=== PATIENT | male | born 1990 | race Caucasian/White ===

== ENCOUNTER 2018-11-09 08:03 | Emergency (ER) | payer BC, OTHER ==
[~2018-11-09] VITALS: Ht 167.6 cm; Wt 61.9 kg
[2018-11-09 08:08] VITALS: Ht 167.6 cm; Wt 61.9 kg
[2018-11-09 11:00] VITALS: RESP 14
[2018-11-09] MEDS ORDERED: PRED20TA PO (13:04)
[2018-11-09] MEDS ORDERED: LEVO750T25 PO (13:04)
--- NOTE | 2018-11-09 13:09 | ERD ---
ER Documentation Chief Complaint Chief Complaint Complains of rash, swelling cellulitis lower extremities since yesterday HPI This is a 28-year-old male who had a small area on his left de guzman of erythema that when he woke up today had spread nearly circumferentially around his left lower de guzman and some on the right de guzman. He said it feels better today than yesterday but the redness is worse. He has no fever no trauma no chest pain or shortness of breath. ROS All systems reviewed and are negative except as per history of present illness. Medications Home Meds Active Scripts Levofloxacin* (Levaquin*) 750 Mg Tablet, 750 MG PO DAILY for 10 Days, TAB Prov:LEKKOS,APOSTOLOS A. DO 11/09/18 Prednisone* (Prednisone*) 20 Mg Tab, 60 MG PO DAILY for 5 Days, TAB Prov:LEKKOS,APOSTOLOS A. DO 11/09/18 Allergies Allergies: Coded Allergies: Penicillins (Verified Allergy, Intermediate, 11/09/18) PMhx/Soc Medical and Surgical Hx: pt denies Medical Hx, pt denies Surgical Hx History of Surgery: No Anesthesia Reaction: No Hx Neurological Disorder: No Hx Respiratory Disorders: No Hx Cardiac Disorders: No Hx Psychiatric Problems: No Hx Miscellaneous Medical Probl: No Hx Alcohol Use: No Hx Substance Use: No Hx Tobacco Use: Yes Smoking Status: Current every day smoker FmHx Family History: No coronary disease Physical Exam Vitals Vital Signs Date Temp Pulse Resp B/P (MAP) Pulse Ox O2 O2 Flow FiO2 Time Delivery Rate 11/09/18 110 14 119/71 100 Room Air 11:00 (87) 11/09/18 98.5 155 20 123/74 96 08:08 (90) Physical Exam Const: No acute distress Head: Atraumatic Eyes: Normal Conjunctiva ENT: Normal External Ears, Nose and Mouth. Neck: Full range of motion. No meningismus. Resp: Clear to auscultation bilaterally Cardio: Regular rate and rhythm, no murmurs Abd: Soft, non tender, non distended. Normal bowel sounds Skin: The left lower leg has a nearly circumferential area of erythema that is non-blanchable going around the left lower de guzman with small punctate areas of erythema at the edges the right de guzman has a small amount as well., No ecchymosis or purpura Back: No midline or flank tenderness Ext: No cyanosis, or edema Neur: Awake and alert Psych: Normal Mood and Affect Result Diagram: 11/09/18 1107 11/09/18 1107 Results 24 hrs Laboratory Tests Test 11/09/18 11:07 White Blood Count 7.5 10^3/ul Red Blood Count 4.19 10^6/ul Hemoglobin 12.6 g/dl Hematocrit 37.1 % Mean Corpuscular Volume 88.5 fl Mean Corpuscular Hemoglobin 30.1 pg Mean Corpuscular Hemoglobin Concent 34.0 g/dl Red Cell Distribution Width 11.9 % Platelet Count 218 10^3/UL Mean Platelet Volume 9.1 fl Immature Granulocytes % 0.300 % Neutrophils % 62.8 % Lymphocytes % 25.3 % Monocytes % 8.6 % Eosinophils % 2.7 % Basophils % 0.3 % Nucleated Red Blood Cells % 0.0 /100WBC Immature Granulocytes # 0.020 10^3/ul Neutrophils # 4.7 10^3/ul Lymphocytes # 1.9 10^3/ul Monocytes # 0.6 10^3/ul Eosinophils # 0.2 10^3/ul Basophils # 0.0 10^3/ul Nucleated Red Blood Cells # 0.0 10^3/ul Prothrombin Time 13.4 Sec Prothrombin Time Ratio 1.0 INR International Normalized Ratio 1.01 Activated Partial Thromboplast Time 33.4 Sec Sodium Level 139 mmol/L Potassium Level 4.2 mmol/L Chloride Level 99 mmol/L Carbon Dioxide Level 31 mmol/L Anion Gap 9 Blood Urea Nitrogen 17 mg/dl Creatinine 0.83 mg/dl Est Glomerular Filtrat Rate mL/min > 60 mL/min Glucose Level 102 mg/dl Calcium Level 9.2 mg/dl Total Bilirubin 0.1 mg/dl Direct Bilirubin 0.00 mg/dl Indirect Bilirubin 0.1 mg/dl Aspartate Amino Transf (AST/SGOT) 27 IU/L Alanine Aminotransferase (ALT/SGPT) 27 IU/L Alkaline Phosphatase 85 IU/L C-Reactive Protein 3.7 mg/dl Total Protein 7.2 g/dl Albumin 4.0 g/dl Globulin 3.20 g/dl Albumin/Globulin Ratio 1.25 Current Medications Medications Dose Sig/Brittany Start Time Status Last (Trade) Ordered Route PRN Stop Time Admin Dose Reason Admin 125 mg ONCE ONCE 11/09/18 Methylprednis IM 13:30 olone Sodium 11/09/18 13:31 Succinate (Solu-Medrol) Procedures/MDM Ordering MD: MT MCKEON DO Location: E/R Room/Bed: PROCEDURE: US Lower extremity Venous. CLINICAL INDICATION: Bilateral lower extremity edema TECHNIQUE: Multiple sonographic images of the bilateral lower extremity deep venous system was obtained utilizing grayscale, color-flow, compressive sonography and doppler imaging with augmentation. The images were reviewed on a PACS workstation. COMPARISON: None. FINDINGS: There is normal compressibility and flow within the bilateral common femoral, femoral , posterior tibial and popliteal veins. RPTAT: AA IMPRESSION: No sonographic evidence for deep venous thrombosis. .Cam Long MD, MD Date Time Electronically viewed and signed by .Cam Long MD, MD on 11/09/2018 10:20 .S/ CC: MT MCKEON DO [id number] The patient has a cellulitis or vasculitis he has a mild elevation of his CRP and his blood work looks good. The patient does not want to stay in the [facility]. Some Solu-Medrol here and will discharge home with Levaquin. I told him to return within the next 24 hours if he gets any worse and gave him strict warning signs. He is afebrile and says he feels better Departure Diagnosis: Primary Impression: Cellulitis Site of cellulitis: extremity Site of cellulitis of extremity: lower extremity Laterality: left Qualified Codes: L03.116 - Cellulitis of left lower limb Condition: Stable Patient Instructions: Cellulitis MT MCKEON DO Nov 09, 2018 13:09
[2018-11-09] MEDS ORDERED: METHYLPREDNISOLONE 125 MG INJ IM ONE (13:30)
[2018-11-09 13:54] VITALS: BP 112/70; PULSE 62
[2018-11-25] MEDS ORDERED: ERYT1OIN6 RIGHT EYE (14:25)
[2018-11-25] MEDS ORDERED: HYDR-4011 PO (15:18)
== END 2018-11-09 13:55 | disposition home or self-care (01) ==
LOC: FTE 08:03 → E/R 13:55
DX: L03.116 Cellulitis of left lower limb (principal); F17.210 Nicotine dependence, cigarettes, uncomplicated
CPT/HCPCS: 80053; 85025; 85610; 85730; 86140; 93970; 96372; J2930; Z7502; Z7610